=== PATIENT | female | born 1940 | race Caucasian/White ===

== ENCOUNTER 2019-07-01 22:33 | Observation (INO) | payer MEDICARE, OTHER ==
[~2019-07-01] VITALS: Ht 170.2 cm; Wt 76.8 kg
[2019-07-01 23:06] LABS: BASOPHILS ABSOLUTE AUTO 0.07 K/mm3 (0.00-0.23); BASOPHILS PERCENT AUTO 1 % (0-2); EOSINOPHILS ABSOLUTE AUTO 0.22 K/mm3 (0.00-0.68); EOSINOPHILS PERCENT AUTO 3 % (0-6); Hematocrit 39.9 % (33.0-51.0); Hemoglobin 13.6 g/dL (11.5-16.0); IMMATURE GRAN ABSOLUTE AUTO 0.01 K/mm3 (0.00-0.10); IMMATURE GRAN PERCENT AUTO 0 % (0-1); LYMPHOCYTES ABSOLUTE AUTO 2.35 K/mm3 (0.84-5.20); LYMPHOCYTES PERCENT AUTO 29 % (21-46); MONOCYTES ABSOLUTE AUTO 0.74 K/mm3 (0.16-1.47); MONOCYTES PERCENT AUTO 9 % (4-13); Mean Corpuscular HGB 30.8 pg (26.0-34.0); Mean Corpuscular HGB Conc 34.1 g/dL (31.5-36.5); Mean Corpuscular Volume 91 fL (80-100); Mean Platelet Volume 9.1 fL (9.1-12.4); NEUTROPHILS ABSOLUTE AUTO 4.65 K/mm3 (1.96-9.15); NEUTROPHILS PERCENT AUTO 58 % (41-73); Platelet Count 250 K/mm3 (150-400); RDW Coefficient Variation 13.1 % (11.7-14.2); RDW Standard Deviation 42.9 fL (35.1-46.3); Red Blood Cell Count 4.41 M/mm3 (3.80-5.20); White Blood Cell Count 8.04 K/mm3 (4.00-11.30)
[2019-07-01 23:29] LABS: Alanine Aminotransfer (ALT/SGP 29 U/L (12-78); Alk Phos 52 U/L (50-136); Anion Gap 9 mmol/L (6-16); Aspartate Aminotrans (AST/SGOT 25 U/L (12-37); Bilirubin, Total 0.6 mg/dL (0.1-1.0); Blood Urea Nitrogen 24 mg/dL (8-24); CO2, Blood 24 mmol/L (21-32); Calcium, Blood 9.5 mg/dL (8.5-10.1); Chloride, Blood 106 mmol/L (98-108); Creatinine, Blood 0.89 mg/dL (0.40-1.00); Globulin, Blood 4.1 g/dL (2.2-4.0); Glomerular Filtration Rate >60 (60-); Glucose, Blood 86 mg/dL (70-99); Sodium, Blood 139 mmol/L (136-145); Total Protein, Blood 8.1 g/dL (6.4-8.2); Troponin I <0.015 ng/mL (0.000-0.040)
[2019-07-02] MEDS ORDERED: AMLO10 PO (01:11)
[2019-07-02] MEDS ORDERED: ATOR40TA PO (01:11)
[2019-07-02] MEDS ORDERED: CHLO25B PO (01:12)
[2019-07-02] MEDS ORDERED: CARV6.25 PO (01:12)
[2019-07-02] MEDS ORDERED: CONEST.625 PO (01:13)
[2019-07-02] MEDS ORDERED: CLOB.05TO (01:13)
[2019-07-02] MEDS ORDERED: Penlac6.6 ML TOP (01:13)
[2019-07-02] MEDS ORDERED: Fish Oil 10001000 MG PO (01:14)
[2019-07-02] MEDS ORDERED: Hair, Skin & N1 EACH PO (01:14)
[2019-07-02] MEDS ORDERED: Synthroid88 MCG PO (01:14)
[2019-07-02] MEDS ORDERED: FOLI1 PO (01:14)
[2019-07-02] MEDS ORDERED: VALS80 PO (01:15)
[2019-07-02] MEDS ORDERED: SPIR25 PO (01:15)
[2019-07-02] MEDS ORDERED: POTCHL20ER PO (01:15)
[2019-07-02] MEDS ORDERED: VITAMIN D33000 UNI1 PO (01:16)
--- NOTE | 2019-07-02 04:20 | NUR ---
SHIFT SUMMARY PT ADMITTED FOR OBSERVATION FROM ER [facility] FOR CHEST PAIN/PRESSURE & FAMILY HX OF CARDIAC ILLNESS. RA. FULL CODE. MED LIST IS UNRECONCILED. REGULAR DIET. 1 PERSON STANDBY ASSIST DUE TO WEAKNESS. UNREMARKABLE LABS. EKG UNREMARKABLE. TELEMETRY IS MONITORING: NSR @ 66 BPM. A&O X4.
[2019-07-02 07:19] LABS: Hematocrit 39.4 % (33.0-51.0); Hemoglobin 13.4 g/dL (11.5-16.0); Mean Corpuscular HGB 30.5 pg (26.0-34.0); Mean Corpuscular Volume 90 fL (80-100); Mean Platelet Volume 9.3 fL (9.1-12.4); Platelet Count 220 K/mm3 (150-400); RDW Standard Deviation 42.5 fL (35.1-46.3); Red Blood Cell Count 4.39 M/mm3 (3.80-5.20); White Blood Cell Count 8.69 K/mm3 (4.00-11.30)
[2019-07-02 07:40] LABS: Alanine Aminotransfer (ALT/SGP 25 U/L (12-78); Albumin, Blood 3.7 g/dL (3.4-5.0); Albumin/Globulin Ratio 0.9 (0.8-1.8); Alk Phos 49 U/L (50-136); Anion Gap 6 mmol/L (6-16); Aspartate Aminotrans (AST/SGOT 22 U/L (12-37); Bilirubin, Total 0.5 mg/dL (0.1-1.0); Blood Urea Nitrogen 25 mg/dL (8-24); Bun/Creatinine Ratio 28.3 (12.0-20.0); CO2, Blood 24 mmol/L (21-32); Chloride, Blood 107 mmol/L (98-108); Creatinine, Blood 0.88 mg/dL (0.40-1.00); Globulin, Blood 3.9 g/dL (2.2-4.0); Glomerular Filtration Rate >60 (60-); Glucose, Blood 114 mg/dL (70-99); Sodium, Blood 137 mmol/L (136-145); Total Protein, Blood 7.6 g/dL (6.4-8.2)
[2019-07-02 07:41] LABS: CPK Creatine Kinase 70 U/L (26-193); Troponin I <0.015 ng/mL (0.000-0.040)
[2019-07-02 12:02] LABS: Free Thyroxine 1.07 ng/dL (0.70-1.60)
[2019-07-02 12:04] LABS: Triiodothyronine, Free 2.94 pg/mL (2.18-3.98)
--- NOTE | 2019-07-02 12:25 | NUR ---
ECHOCARDIOGRAM COMPLETED
[2019-07-02 15:44] LABS: CPK Creatine Kinase 61 U/L (26-193); Troponin I <0.015 ng/mL (0.000-0.040)
--- NOTE | 2019-07-02 18:11 | NUR ---
SHIFT SUMMARY INDEPENDENT IN ROOM. HAS REPORTED PAIN THROUGH DAY THAT IS A 1-2 HEAVY CHEST PAIN. DOES NOT INCREASE WITH ACTIVITY. NO SOB WITH ACTIVITY WELL. DOES HAVE A WHISPERY VOICE RELATED TO HISTORY OF THYROID REMOVAL. HOPES TO GO HOME EARLY TOMORROW TO TRAVEL TO FAMILY FOR HOLIDAYS. AT BEDSIDE ON AND OFF THROUGH DAY.
--- NOTE | 2019-07-03 07:15 | NUR ---
ASSUMED CARE OF PT- BEDSIDE REPORT COMPLETED WITH NIGHT RN CAMI. PER REPORT PT TO DISCHARGE HOME TODAY. PT HAS HAD NO CP SHE IS ON TELE WITH NO EVENTS NSR. PT ALERT AND ORIENTED AMBULATING INDEPENDTLY IN THE HALLS. PT STATES SHE IS READY TO GO.
--- NOTE | 2019-07-03 12:08 | NUR ---
DISCHARGE NOTE- PT DISCHARGED HOME TODAY, TELE AND IV DC'D PRIOR TO DISCHARGE. PT WAS GIVEN VERBAL AND WRITTEN DISCHARGE INSTRUCTIONS AND ACKNOWLEDGED UNDERSTANDING OF THEM. PT WAS TAKEN VIA W/C BY [facility] AT THE TIME OF DISCHARGE SPOUSE AT THE BEDSIDE.
== END 2019-07-03 12:04 | disposition home or self-care (01) ==
LOC: ER 22:33 → MEDS 22:34 → ENPENDDIS 07-03 09:57 → MEDS 07-03 12:04
PROVIDERS: Emergency Medicine; Family Medicine; ADMIT Internal Medicine
DX: R07.9 Chest pain, unspecified (principal); I16.0 Hypertensive urgency; I10 Essential (primary) hypertension; R94.6 Abnormal results of thyroid function studies; E03.9 Hypothyroidism, unspecified; I08.2 Rheumatic disorders of both aortic and tricuspid valves; E78.5 Hyperlipidemia, unspecified; K59.00 Constipation, unspecified; Z79.899 Other long term (current) drug therapy
CPT/HCPCS: 36415; 71046; 80053; 82550; 83690; 83880; 84439; 84443; 84481; 84484; 85025; 85027; 93005; 93010; 93306; 96372; 96374; 99285-25; G0378; J1650; J2270